=== PATIENT | male | born 1955 | race Caucasian/White ===

== ENCOUNTER 2017-07-29 09:18 | Day surgery (SDC) | payer OTHER ==
[~2017-07-29] VITALS: Ht 182.9 cm; Wt 97.5 kg
[~2017-07-29 09:18] MED LIST: ASPI81CH PO; ATOR10 PO; GABA600 PO; INSULANPEN SC; LEVSOD100 PO; Novolog Fl100 UNIT/1 INJ; SERT25 PO
== END 2017-07-29 23:00 | disposition home or self-care (01) ==
LOC: ORSCMMR 09:18 → ORD 10:30 → ORSCMMR 10:30
PROVIDERS: Internal Medicine Gastroenterology
PROC: 0DJD8ZZ Inspection of Lower Intestinal Tract, Via Natural or Artificial Opening Endoscopic (ICD-10-PCS; principal; 2017-07-29 10:30)
DX: Z12.11 Encounter for screening for malignant neoplasm of colon (principal); E10.8 Type 1 diabetes mellitus with unspecified complications; E03.9 Hypothyroidism, unspecified; Z80.0 Family history of malignant neoplasm of digestive organs; F32.9 Major depressive disorder, single episode, unspecified; Z79.82 Long term (current) use of aspirin; E78.00 Pure hypercholesterolemia, unspecified; Z79.4 Long term (current) use of insulin; Z79.899 Other long term (current) drug therapy
CPT/HCPCS: 82947; J7030; J7120

== ENCOUNTER 2019-01-26 12:02 | Emergency (ER) | payer OTHER ==
[~2019-01-26] VITALS: Ht 182.9 cm; Wt 98.9 kg
[~2019-01-26 12:02] MED LIST changes: +ERYT1OIN RIGHTEYE
[2019-01-26] MEDS ORDERED: Norco 5-325 Ta1 EACH PO (16:03)
[2019-01-26] MEDS ORDERED: CYCL10 PO (16:03)
== END 2019-01-26 16:14 | disposition home or self-care (01) ==
LOC: ER 12:02
DX: M54.5 Low back pain (principal); E10.9 Type 1 diabetes mellitus without complications; Z79.899 Other long term (current) drug therapy
CPT/HCPCS: 99283; A9270-GY

== ENCOUNTER → 2021-03-24 | Outpatient (CLI) | payer OTHER ==
[~2021-03-24] MED LIST changes: +CYCL10 PO; +Norco 5-325 Ta1 EACH PO
== END | disposition home or self-care (01) ==
LOC: LAB SHORT 07:54
DX: C44.41 Basal cell carcinoma of skin of scalp and neck (principal); C44.519 Basal cell carcinoma of skin of other part of trunk
CPT/HCPCS: 88305

== ENCOUNTER → 2021-04-22 | Outpatient (CLI) | payer OTHER | LOC: LAB SHORT 14:54 | DX: C44.519 Basal cell carcinoma of skin of other part of trunk (principal) | CPT/HCPCS: 88305 ==

== ENCOUNTER → 2021-11-26 | Outpatient (CLI) | payer MEDICARE, OTHER | END | disposition home or self-care (01) | LOC: LAB SHORT 14:56 | DX: D17.21 Benign lipomatous neoplasm of skin and subcutaneous tissue of right arm (principal) | CPT/HCPCS: 88304 ==

== ENCOUNTER 2022-04-04 08:38 | Emergency (ER) | payer MEDICARE, OTHER ==
[~2022-04-04] VITALS: Ht 182.9 cm; Wt 93.0 kg
[2022-04-04] MEDS ORDERED: ERYT.5TO RIGHTEYE (10:03)
== END 2022-04-04 10:25 | disposition home or self-care (01) ==
LOC: ER 08:38
DX: T15.01XA Foreign body in cornea, right eye, initial encounter (principal); E10.9 Type 1 diabetes mellitus without complications; Z79.4 Long term (current) use of insulin; Z79.890 Hormone replacement therapy; Z79.82 Long term (current) use of aspirin; Z79.899 Other long term (current) drug therapy; X58.XXXA Exposure to other specified factors, initial encounter
CPT/HCPCS: 90714; A9270

== ENCOUNTER → 2022-11-12 | Outpatient (CLI) | payer MEDICARE, OTHER ==
[~2022-11-12] MED LIST changes: +ERYT.5TO RIGHTEYE
[2022-11-12 18:17] LABS: Albumin/Globulin Ratio 1.3 (0.8-1.8); Bilirubin, Total 0.3 mg/dL (0.1-1.0); Bun/Creatinine Ratio 14.6 (12.0-20.0); Creatinine, Blood 0.75 mg/dL (0.60-1.20); Free Thyroxine 0.94 ng/dL (0.70-1.60); Globulin, Blood 3.1 g/dL (2.2-4.0); Potassium, Blood 4.4 mmol/L (3.5-5.5); Thyroid Stimulating Hormone 0.429 uIU/mL (0.360-4.800); Total Protein, Blood 7.1 g/dL (6.4-8.2)
[2022-11-12 18:39] LABS: Creatinine, Urine Random 65.7 mg/dL (27.00-270.00)
[2022-11-12 18:42] LABS: Microalb/Creat Ratio UR, Rand 7.869 mg/g (0.000-30.000); Microalbumin, Random Urine 5.17 mg/L (0.000-20.000)
== END | disposition home or self-care (01) ==
LOC: LAB SHORT 17:06 → LAB 17:06
PROVIDERS: Internal Medicine Endocrinology, Diabetes & Metabolism
DX: E10.8 Type 1 diabetes mellitus with unspecified complications (principal); E89.0 Postprocedural hypothyroidism
CPT/HCPCS: 80053; 82043; 82570; 83036; 84439; 84443

== ENCOUNTER → 2022-12-01 | Outpatient (CLI) | payer MEDICARE, OTHER | END | disposition home or self-care (01) | LOC: PLD 09:32 → LAB SHORT 09:32 | DX: D17.0 Benign lipomatous neoplasm of skin and subcutaneous tissue of head, face and neck (principal) | CPT/HCPCS: 88304 ==

== ENCOUNTER 2025-01-31 07:55 | Day surgery (SDC) | payer MEDICARE ==
[~2025-01-31] VITALS: Ht 177.8 cm; Wt 98.5 kg
[2025-01-31] VITALS (17 sets, daily range): BP systolic 86–147; BP diastolic 60–83
[~2025-01-31 07:55] MED LIST changes: +INSULIN PUMP
--- NOTE | 2025-01-31 08:41 | NUR ---
Patient confirms NPO status and agrees with scheduled surgery. Patient states colon prep results clear. Patient States Post-Procedure ride home has been arranged. Pre-Op teaching done. Pt verbalizes understanding. Discussed discharge instructions with patient, he verbalized undersanding. Blood sugar checked with his insulin pump and hospital glucose meter.
--- NOTE | 2025-01-31 08:49 | NUR ---
01/31/25 0849 Anthony Lazcano CONFIRMED AND REVIEWED H&P, MEDCICATIONS, ALLERGIES, MEDICAL HISTORY, RESPIRATORY HISTORY, VITAL SIGNS, 3-LEAD EKG, CONSENTS, AND PHYSICIAN ORDERS. PATIENT CONFIRMS NPO STATUS AND AGREES WITH SCHEDULED PROCEDURE. MONITOR INTACT WITH CONTINUOUS PULSE OXIMETRY, CAPNOGRAPHY, 3-LEAD EKG, INTERMITTENT BP. SUPPLEMENTAL O2 TO BE TITRATED THROUGHOUT PROCEDURE TO MAINTAIN O2 SATURATION ABOVE 90%. PATIENT DETERMINED TO BE ASA APPROPRIATE FOR PROPOFOL SEDATION PRIOR TO START OF PROCEDURE BY DR. SOUSA
--- NOTE | 2025-01-31 09:48 | NUR ---
Patient up to Ambulate independently. Gait steady. VSS and consistent with pt baseline. Pt turned his insulin pump back on. Pt has no complaints and verbalizes readiness to go home. Discharge instructions reviewed with patient. Patient verbalizes understanding. Copy given to patient to take home. Patient States Post-Procedure ride home has been arranged. Discharged via wheelchair to private car for ride home. Pt belongings returned to pt.
== END 2025-01-31 09:49 | disposition home or self-care (01) ==
LOC: ORSCMMR 07:55 → ORD 09:00 → ORSCMMR 09:49
PROVIDERS: Internal Medicine Gastroenterology
PROC: 0DJD8ZZ Inspection of Lower Intestinal Tract, Via Natural or Artificial Opening Endoscopic (ICD-10-PCS; principal; 2025-01-31 09:00)
DX: Z12.11 Encounter for screening for malignant neoplasm of colon (principal); Z80.0 Family history of malignant neoplasm of digestive organs; Z85.850 Personal history of malignant neoplasm of thyroid; E89.0 Postprocedural hypothyroidism; E10.40 Type 1 diabetes mellitus with diabetic neuropathy, unspecified; Z79.4 Long term (current) use of insulin; Z79.82 Long term (current) use of aspirin; Z79.899 Other long term (current) drug therapy; F32.A Depression, unspecified; E78.00 Pure hypercholesterolemia, unspecified
CPT/HCPCS: 82947; J2704; J7120